=== PATIENT | female | born 1965 | race Caucasian/White ===

== ENCOUNTER 2017-02-07 09:53 | Outpatient (CLI) | payer BC ==
--- NOTE | 2017-02-09 12:45 | Mammography Report ---
DIGITAL SCREENING MAMMOGRAM: 02/07/2017 CLINICAL INDICATION: A 52-year-old, for screening. COMPARISON: 01/2016, 10/2013, 08/2012, 08/2011, 08/2010, 07/2009. TECHNIQUE: Routine CC and MLO projections were obtained of the breasts. FINDINGS: Scattered fibroglandular tissue is present within the breasts. There are no dominant weston s, suspicious microcalcifications, or secondary signs of malignancy. In comparison to the previous st udies, there are no significant changes. ASSESSMENT: NO MAMMOGRAPHIC EVIDENCE OF MALIGNANCY. NO SIGNIFICANT INTERVAL CHANGES. RECOMMENDATION: Screening mammography is recommended annually. BIRADS category 1 - negative. STANDARD QUALIFYING STATEMENTS 1. This examination was reviewed with the aid of Computed-Aided Detection (CAD). 2. A negative or benign imaging report should not delay biopsy if clinically suspicious findings are present. Consider surgical consultation if warranted. More than 5% of cancers are not identified by i maging. 3. Dense breasts may obscure an underlying neoplasm. JOB #: [id number] EXT JOB #:[id number]
== END 2017-02-07 09:54 | disposition home or self-care (01) ==
LOC: DI 09:53
PROVIDERS: ATTEND Physician Assistant Medical
DX: Z12.31 Encounter for screening mammogram for malignant neoplasm of breast (principal)
CPT/HCPCS: 77067

== ENCOUNTER 2017-06-23 07:12 | Day surgery (SDC) | payer BC ==
[~2017-06-23 07:12] MED LIST: LACTATED RINGERS 1,000 ML IV ONE
[2017-06-23 07:48] LABS: HCG UR QUAL NEGATIVE
--- NOTE | 2017-06-23 08:38 | HISTORY & PHYSICAL EXAMINATION ---
HPI - History of Present Illness HPI Comment/Other: Patient is here for screening colonoscopy. She is an average risk patient. Past Medical History: Reviewed history from 02/07/2017 and no changes required: Current Problems: PNEUMONIA (ICD-486) (XSY49-L68.9) Cough (ICD-786.2) (JSQ99-Q58) Eczema, atopic (ICD-691.8) (VWJ12-Y72.9) Hypertension, benign essential (ICD-401.1) (OQM43-W58) Hyperkalemia (ICD-276.7) (HNU88-M24.5) Carpal tunnel syndrome (ICD-354.0) (XCM23-W87.00) SHOULDER IMPINGEMENT SYNDROME (ICD-726.2) (HXI96-G53.40) Preventive health care (ICD-V70.0) (GPK20-Y35.00) Contraceptive management (ICD-V25.9) (QMK05-B28.9) ANEMIA NOS (ICD-285.9) (SYG13-H50.9) HYPERLIPIDEMIA (ICD-272.4) (HDJ06-R87.5) Past Surgical History: Reviewed history from 11/29/2014 and no changes required: C sections X 3 Appendectomy: 1974 Family History Summary: Reviewed history Last on 01/05/2013 and no changes required:04/15/2017 Mother (biol.) - Has Family History of Lung/Respiratory Disease - Entered On: 07/2017 General Comments - FH: GM: DM Mother: lung ca Social History: Reviewed history from 04/07/2007 and no changes required: Patient has never smoked. Alcohol Use - no Risk Factors: Smoked Tobacco Use: Never smoker Smokeless Tobacco Use: Never Passive smoke exposure: no Drug use: no HIV high-risk behavior: no Caffeine use: 1 drinks per day Alcohol use: no Exercise: yes Type of Exercise: gym Seatbelt use: 100 % Sun Exposure: occasionally Family History Risk Factors: Family History of NV in females < 65 years old: no Family History of NV in males < 55 years old: no Review of Systems See HPI Physical Exam General: well developed, well nourished, in no acute distress Lungs: clear bilaterally to A & P Heart: regular rate and rhythm, S1, S2 without murmurs, rubs, gallops, or clicks Abdomen: bowel sounds positive; abdomen soft and non-tender without masses, organomegaly, or hernias noted Pulses: pulses normal in all 4 extremities Extremities: no clubbing, cyanosis, edema, or deformity noted with normal full range of motion of all joints Cervical Nodes: no significant adenopathy Psych: alert and cooperative; normal mood and affect; normal attention span and concentration Impression & Recommendations: Problem # 1: Screening for malignant neoplasm, colon (ICD-V76.51) (PQF15-Q06.11 ) proceed with colonoscopy PMH/PSH - Past Medical History Cardiovascular: positive: Hypertension Respiratory: positive: Asthma Endocrine/Autoimmune: positive: None GI: positive: Hemorrhoids : positive: None HEENT: positive: None Psych: positive: None Musculoskeletal: positive: Osteoarthritis Derm: positive: None MRSA Hx?: No - 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
[2017-06-23] MEDS ORDERED: MIDAZOLAM 2 MG/2 ML VIAL IVP ONE (08:44)
[2017-06-23] MEDS ORDERED: fentaNYL 100 MCG/2 ML VIAL IVP ONE (08:44)
[2017-06-23 10:21] VITALS: BP 128/70
== END 2017-06-23 07:13 | disposition home or self-care (01) ==
LOC: SDS 07:12
PROVIDERS: ATTEND Surgery
PROC: 0DJD8ZZ Inspection of Lower Intestinal Tract, Via Natural or Artificial Opening Endoscopic (ICD-10-PCS; principal; 2017-06-23 08:30)
DX: Z12.11 Encounter for screening for malignant neoplasm of colon (principal); K64.8 Other hemorrhoids; I10 Essential (primary) hypertension; E78.5 Hyperlipidemia, unspecified; J45.909 Unspecified asthma, uncomplicated
CPT/HCPCS: 45378; 81025; J7120

== ENCOUNTER 2018-04-10 15:43 | Outpatient (CLI) | payer BC ==
--- NOTE | 2018-04-11 10:14 | Mammography Report ---
Procedure Date: 04/10/2018 Accession Number: [id number] / [id number] Procedure: MGN - Screening Mammo Dig Bilat CPT Code: FULL RESULT: EXAM: Screening Mammo Dig Bilat DATE: 04/10/2018 4:02 PM CLINICAL HISTORY: 53-year-old female with history of early menses presents for screening mammogram. TECHNIQUE: Bilateral CC and MLO views were obtained. COMPARISON: 02/07/2017, 01/08/2016, 10/19/2013, 09/01/2012. FINDINGS: The breasts demonstrate scattered fibroglandular densities bilaterally. Breast No suspicious masses, clustered microcalcifications, or regions of architectural distortion are identified. IMPRESSION: Negative examination RECOMMENDATION: Routine annual screening unless otherwise clinically indicated. BIRADS CATEGORY 1: Negative STANDARD QUALIFYING STATEMENTS: 1. This examination was reviewed with the aid of Computer-Aided Detection (CAD). 2. A negative or benign imaging report should not delay biopsy if clinically suspicious findings are present. Consider surgical consultation if warrented. More than 5% of cancers are not identified by imaging. 3. Dense breasts may obscure an underlying neoplasm.
== END 2018-04-10 15:44 | disposition home or self-care (01) ==
LOC: DI.N 15:43
PROVIDERS: ATTEND Radiology Diagnostic Radiology
DX: Z12.31 Encounter for screening mammogram for malignant neoplasm of breast (principal)
CPT/HCPCS: 77067

== ENCOUNTER 2018-09-18 23:49 | Emergency (ER) | payer BC ==
--- NOTE | 2018-09-19 02:02 | ED Physician Documentation ---
History of Present Illness - Stated complaint Stated Complaint: JAW PX,HIGH BP CONCERN - Chief complaint Chief Complaint: General - History obtained from History obtained from: Patient, Family - History of Present Illness Timing: Today Pain level max: 0 Pain level now: 0 Improved by: nothing Worsened by: no apparent inciting nor exacerbating factors - Additonal information Additional information: mild, palliative senior np cough since this morning. chief c/o is high blood pressure, DBP was 110s earlier this evening. denies dyspnea, STALLWORTH, weakness, numbess. besides mild cough, her only other symptom is left jaw pain which is in a specific spot and reproducible with palpation and movement of jaw Review of Systems Constitutional: reports: Reviewed and negative Eyes: reports: Reviewed and negative Cardiac: reports: Reviewed and negative Respiratory: reports: Cough. 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 - Present Medications Home Medications: Ambulatory Orders Medication Instructions Recorded Confirmed hydroCHLOROthiazide 25 mg PO DAILY 06/23/17 06/23/17 [Hydrochlorothiazide] Benzonatate [Tessalon Perle] 100 mg PO Q8HR PRN #20 capsule 09/19/18 - Allergies Allergies/Adverse Reactions: Allergies Allergy/AdvReac Type Severity Reaction Status Date / Time No Known Drug Allergies Allergy Verified 09/18/18 23:58 - Social History Does the pt smoke?: No Smoking Status: Never smoker Does the pt drink ETOH?: No Does the pt have substance abuse?: No - Immunizations Immunizations are current?: Yes - POLST Patient has POLST: No PD ED PE NORMAL - Vitals Vital signs reviewed: Yes - General General: Alert and oriented X 3, No acute distress, Well developed/nourished - HEENT HEENT: Moist mucous membranes, Pharynx benign - Cardiac Cardiac: RRR, No murmur, No gallop, No rub - Respiratory Respiratory: No respiratory distress, Clear bilaterally - Neuro Neuro: Alert and oriented X 3, manager in training 2-12 intact, No motor deficit, No sensory deficit, Normal speech Results - Vitals Vitals: Oxygen O2 Source Room air PD MEDICAL DECISION MAKING - ED course ED course: mild cough with clear lungs to auscultation bilaterally, consider bronchitis and will trial on tessalon perles. her hypertension is established and is currently not controlled but asymptomatic. Per UpToDate, There is no proven benefit from rapid reduction of blood pressure in patients with severe asymptomatic hypertension [2,7,11,12,14,16], and most such patients who present in the ambulatory setting can be managed as outpatient. this patient endorses access to reliable f/u (with PMD) and can take a second dose of her medication if needed, once per day, according to parameters I provided verbally and in her discharge papers (she is on the lower of two potential doses of her antihypertensive). Departure - Departure Disposition: 01 Home, Self Care Clinical Impression: Hypertension Qualifiers: Hypertension type: essential hypertension Qualified Code(s): I10 - Essential (primary) hypertension Condition: Good Instructions: ED Hypertension Conf Out Of Control Follow-Up: Antonina Francis PA-C [Primary Care Provider] - Prescriptions: Benzonatate [Tessalon Perle] 100 mg PO Q8HR PRN #20 capsule PRN Reason: Cough Comments: Contact your primary care provider to arrange for next available appointment. In the meantime, you can take a second dose of your blood pressure medication (triamterene/HCTZ) once per day if your blood pressure is high (I would recommend taking the extra dose if your systolic blood pressure (top number) is higher than 180 and/or if your diastolic blood pressure (lower number) is higher than 105). Discharge Date/Time: 09/19/18 02:57
[2018-09-19] MEDS ORDERED: BENZONATATE 100 MG CAPSULE PO STA (02:43)
[2018-09-19 02:55] VITALS: BP 137/98
== END 2018-09-19 02:57 | disposition home or self-care (01) ==
LOC: ED 23:49
DX: I10 Essential (primary) hypertension (principal)
CPT/HCPCS: 99283; 99284; A9270

== ENCOUNTER 2019-04-02 08:00 | Outpatient (CLI) | payer BC | END 2019-04-02 08:01 | disposition home or self-care (01) | LOC: LAB.R 08:00 | PROVIDERS: ATTEND Physician Assistant Medical | DX: N39.0 Urinary tract infection, site not specified (principal) | CPT/HCPCS: 87086 ==

== ENCOUNTER 2019-12-12 15:05 | Outpatient (CLI) | payer BC | END 2019-12-12 15:06 | disposition home or self-care (01) | LOC: COV 15:05 | PROVIDERS: ATTEND Family Medicine | DX: R05 Cough (principal); R50.9 Fever, unspecified | CPT/HCPCS: 81599 ==

== ENCOUNTER 2020-12-09 08:00 | Outpatient (CLI) | payer BC | END 2020-12-09 23:59 | disposition home or self-care (01) | LOC: LAB.N 08:00 | PROVIDERS: ATTEND Nurse Practitioner | DX: R39.9 Unspecified symptoms and signs involving the genitourinary system (principal) | CPT/HCPCS: 87077; 87086; 87181 ==

== ENCOUNTER 2021-04-10 18:06 | Outpatient (CLI) | payer BC ==
--- NOTE | 2021-04-10 20:51 | XRAY Report ---
PROCEDURE: Chest 2 View X-Ray INDICATIONS: CHEST PAIN TECHNIQUE: 2 view(s) of the chest. COMPARISON: None. FINDINGS: Surgical changes and devices: None. Lungs and pleura: No pleural effusions or pneumothorax. Lungs demonstrate diffuse thickening of the interstitial markings bilaterally. No focal consolidations. Mediastinum: Mediastinal contours are normal. Heart size is normal. Bones and chest wall: No suspicious bony abnormalities. Soft tissues appear unremarkable. IMPRESSION: Diffuse thickening of the interstitial markings bilaterally suggesting interstitial pneu monitis, possibly viral or atypical etiologies. Interstitial edema is also possible but less likely. Reviewed by: Adenike Bocanegra MD on 04/10/2021 8:50 PM PDT Approved by: Adenike Bocanegra MD on 04/10/2021 8:50 PM PDT Station ID: [id number]
== END 2021-04-10 18:07 | disposition home or self-care (01) ==
LOC: DI.N 18:06
PROVIDERS: ATTEND Physician Assistant Medical
DX: R91.8 Other nonspecific abnormal finding of lung field (principal); R07.9 Chest pain, unspecified

== ENCOUNTER 2021-04-17 10:43 | Outpatient (CLI) | payer BC ==
[2021-04-17 18:32] LABS: BASOPHILS # (AUTO) 0.1 10^3/uL (0.0-0.1); BASOPHILS % (AUTO) 0.9 %; EOSINOPHILS # (AUTO) 0.3 10^3/uL (0.0-0.7); EOSINOPHILS % (AUTO) 4.6 %; HCT - HEMATOCRIT 47.2 % (37.0-47.0); HGB - HEMOGLOBIN 15.4 g/dL (12.0-16.0); LYMPHOCYTES # (AUTO) 1.9 10^3/uL (1.5-3.5); LYMPHOCYTES % (AUTO) 27.5 %; MEAN CORPUSCULAR HEMOGLOBIN 30.7 pg (27.0-31.0); MEAN CORPUSCULAR HGB CONC 32.6 g/dL (32.0-36.0); MEAN PLATELET VOLUME 8.6 fL (7.9-10.8); MONOCYTES # (AUTO) 0.7 10^3/uL (0.0-1.0); MONOCYTES % (AUTO) 9.7 %; NEUTROPHILS # (AUTO) 3.9 10^3/uL (1.5-6.6); PLT - PLATELET COUNT 317 10^3/uL (130-450); RED BLOOD COUNT 5.02 10^6/uL (4.20-5.40); RED CELL DISTRIBUTION WIDTH 13.5 % (12.0-15.0); WHITE BLOOD COUNT 6.8 x10^3/uL (4.8-10.8)
[2021-04-17 19:10] LABS: ALBUMIN 4.5 g/dL (3.2-5.5); ALBUMIN/GLOBULIN RATIO 1.3 (1.0-2.2); ALKALINE PHOSPHATASE 48 IU/L (42-121); ALT ALANINE AMINOTRANSFERASE 35 IU/L (10-60); AST ASPARTATE AMINOTRANSFERASE 21 IU/L (10-42); BILIRUBIN,TOTAL 1.3 mg/dL (0.2-1.0); BUN - BLOOD UREA NITROGEN 12 mg/dL (6-20); CALCIUM 9.4 mg/dL (8.5-10.3); CARBON DIOXIDE - CO2 28 mmol/L (21-32); CHLORIDE 100 mmol/L (101-111); CHOL/HDL RATIO 3.4 (<4.4); CHOLESTEROL 247 mg/dL; CREATININE 0.6 mg/dL (0.4-1.0); GFR - MDRD 104 (>89); GLUCOSE 93 mg/dL (70-100); HDL CHOLESTEROL 73 mg/dL; LDL CHOLESTEROL,CALCULATED 160 mg/dL; LDL/HDL RATIO 2.2 (<4.4); POTASSIUM 3.4 mmol/L (3.5-5.0); SODIUM 138 mmol/L (135-145); TRIGLYCERIDES 72 mg/dL; VLDL CHOLESTEROL 14 mg/dL
[2021-04-17 19:15] LABS: THYROID STIMULATING HORMONE 0.68 uIU/mL (0.34-5.60)
== END 2021-04-17 10:44 | disposition home or self-care (01) ==
LOC: DI.N 10:43 → LAB.N 10:44
PROVIDERS: ATTEND Physician Assistant Medical
DX: R07.9 Chest pain, unspecified (principal)
CPT/HCPCS: 36415; 80053; 80061; 83721; 84443; 85025; 85379

== ENCOUNTER 2021-04-18 08:00 | Outpatient (CLI) | payer BC | END 2021-04-18 23:59 | disposition home or self-care (01) | LOC: LAB.N 08:00 | PROVIDERS: ATTEND Physician Assistant Medical | DX: R07.9 Chest pain, unspecified (principal); Z20.822 Contact with and (suspected) exposure to COVID-19 ==

== ENCOUNTER 2021-04-28 17:44 | Outpatient (CLI) | payer BC ==
--- NOTE | 2021-04-29 10:49 | XRAY Report ---
PROCEDURE: Chest 2 View X-Ray INDICATIONS: Chest pain, abnormal prior chest radiograph TECHNIQUE: 2 view(s) of the chest. COMPARISON: 04/10/2021 FINDINGS: Surgical changes and devices: None. Lungs and pleura: No pleural effusions or pneumothorax. Mildly increased interstitial markings are s imilar. Mediastinum: Mediastinal contours are normal. Heart size is normal. Bones and chest wall: No suspicious bony abnormalities. Soft tissues appear unremarkable. IMPRESSION: Mildly increased interstitial markings are not significantly changed from the prior stud y. These findings may represent viral pneumonitis/bronchitis, interstitial edema, or other atypical i nterstitial process. If there is no clinical evidence of infection, consider high-resolution CT of th e chest to further evaluate. Reviewed by: Kwame Alvarez MD on 04/29/2021 10:48 AM PDT Approved by: Kwame Alvarez MD on 04/29/2021 10:48 AM PDT Station ID: [id number]
== END 2021-04-28 17:45 | disposition home or self-care (01) ==
LOC: DI.N 17:44
PROVIDERS: ATTEND Physician Assistant Medical
DX: R07.9 Chest pain, unspecified (principal)

== ENCOUNTER 2021-11-28 13:20 | Outpatient (CLI) | payer BC ==
[2021-11-28] MEDS ORDERED: IOVERSOL 320 100 ML VIAL IVP ONE (14:03)
[2021-11-28] MEDS: IOVERSOL 320 100 ML VIAL IVP ONE (14:14)
--- NOTE | 2021-11-28 17:54 | CT Report ---
PROCEDURE: CHEST W INDICATIONS: CHEST PAIN CONTRAST: IV CONTRAST: Optiray 320 ml: 100 PO CONTRAST: *NO PO CONTRAST TECHNIQUE: After the administration of intravenous contrast, 1 mm axial images were acquired from the pulmonary apices through the posterior costophrenic angles. Axial 5 mm soft tissue kernel reconstructions were performed as well as 8 mm axial MIP and coronal and sagittal 5 mm reformations. For radiation dose reduction, the following was used: automated exposure control, adjustment of mA and/or kV according to patient size. COMPARISON: Correlation is made with prior chest plain film, 04/28/2021. FINDINGS: Image quality: Excellent. Lungs and pleura: No acute air space opacities. No pleural effusions or pneumothorax. Central and peripheral airways are patent and normal in caliber. Mediastinum: Heart size is normal. No pericardial effusion. No mediastinal or hilar adenopathy by size criteria. Thoracic aorta and central pulmonary arteries are normal in size. Esophagus is marcos l in caliber. No hiatal hernia. Bones and chest wall: No suspicious bony lesions. Mild dextroconvex scoliotic curvature is seen. Ag e-appropriate degenerative changes are seen. No vertebral body compression fractures. No axillary or supraclavicular adenopathy by size criteria. The thyroid is normal in size and there are no incid ental findings. Abdomen: Diffuse fatty liver infiltration can be seen. Gallstones are seen. The visualized portions of the upper abdominal structures are otherwise within normal limits. IMPRESSION: No acute chest abnormality is seen. Clear lungs. Incidental note is made of: Dextroconvex scoliotic curvature. Fatty liver infiltration Gallstones Reviewed by: Stephane Montano MD on 11/28/2021 4:53 PM AKDT Approved by: Stephane Montano MD on 11/28/2021 4:53 PM AKDT Station ID: [id number]
== END 2021-11-28 13:21 | disposition home or self-care (01) ==
LOC: DI 13:20
PROVIDERS: ATTEND Physician Assistant Medical
DX: R07.9 Chest pain, unspecified (principal)
CPT/HCPCS: 71260; Q9967

== ENCOUNTER 2023-09-02 15:16 | Outpatient (CLI) | payer BC ==
--- NOTE | 2023-09-07 12:57 | Mammography Report ---
BILATERAL DIGITAL SCREENING MAMMOGRAM 3D/2D: 09/02/2023 CLINICAL: Routine screening. Comparison is made to exams dated: 04/10/2018 mammogram, 02/07/2017 mammogram, 01/08/2016 mammogram, and mammogram - [facility]. There are scattered areas of fibroglandular density in both breasts (category b / 25%-50% glandular t issue). No significant masses, calcifications, or other findings are seen in either breast. There has been no significant interval change. IMPRESSION: NEGATIVE There is no mammographic evidence of malignancy. A 1 year screening mammogram is recommended. Based on the Tyrer Cuzick model (a risk assessment model) the patients lifetime risk is 7.5% and her 10 year risk is 2.4%. According to the ACR, ACS, and NCCN guidelines, an annual breast MRI exam tonja g with mammogram is recommended if the patients lifetime risk is 20% or greater. This exam was interpreted at Station ID: [id number]. NOTE: For mammograms, a report in lay terms will be sent to the patient. Approximately 15% of breast malignancies will not be visualized mammographically. In the management of a palpable breast mass, a negative mammogram must not discourage biopsy of a clinically suspicious lesion. Electronically Signed By: Emile flores/jay:09/02/2023 16:10:41 letter sent: No_Letter ACR BI-RADS Category 1: Negative 3341F PARENCHYMAL PATTERN: (A) - The breast(s) demonstrate(s) scattered fibroglandular densities. BI-RADS CATEGORY: (1) - 1 Mammogram [id number] 1 year screening LATERALITY: (B)
== END 2023-09-02 15:17 | disposition home or self-care (01) ==
LOC: DI 15:16
DX: Z12.31 Encounter for screening mammogram for malignant neoplasm of breast (principal); R92.323 Mammographic fibroglandular density, bilateral breasts